=== PATIENT | female | born 1930 | race Two or more races ===

== ENCOUNTER 2018-06-02 11:37 | Emergency (ER) | payer OTHER ==
[~2018-06-02] VITALS: Ht 160 cm; Wt 81.6 kg
[~2018-06-02 11:37] MED LIST: ATROVENT 00.5 MG/2.5 IH; CALTRATE 600600 MG; CALTRATE 600600 MG PO; CENTRUM SILVER1 EAC2; CENTRUM SILVER1 EAC2 PO; COD LIVER OIL1 EACH; DETROL LA4 MG PO; DETROL2 MG; DICLOFENAC SODI50 MG PO; DICY20TA; ELIQUIS5 MG; ELOQUIS PO; HYZAAR 100-251 UDTAB; HYZAAR 100/25 T1 TAB PO; LINDANE60 ML TP; LOTREL 10-20 MG1 CAP; LOTREL 5-10 MG1 CAP PO; MEDROL4 MG PO; MEDROLPACK PO; NAMENDA10 MG; NAMENDA10 MG PO; NEURONTIN600 MG; NEURONTIN600 MG PO; OSTEO BI-FLEX1 EAC2; PROVENTIL3 ML/2.5 M IH; PROZAC20 MG; PROZAC20 MG PO; RAZADYNE ER16 MG; SIMVASTATIN20 MG; SULFAMETHOXAZOL1 TA6 PO; SYNTHROID100 MCG; SYNTHROID100 MCG PO; TRAM1TAB98 PO; TUSSAFED EX LI118 ML PO; TUSSI PRES-B L120 M1 PO; TYLENOL EXTRA500 MG PO; VITAMIN D3400 UNI1 PO; XOPENEX0.63 MG/3 IH; ZANTAC 7575 MG PO; ZITHROMAX200 MG PO; ZITHROMAX500 MG PO; ZOCOR20 MG PO; ZYRTEC10 MG PO; [UNRECOGNIZED DRUG - OTHER]
[2018-06-02] MEDS ORDERED: PRESERVISION A1 EAC1 PO (12:37)
[2018-06-02] MEDS ORDERED: LUMIGAN2.5 M1 (12:37)
[2018-06-02] MEDS ORDERED: SULAR8.5 MG PO (12:37)
== END 2018-06-02 15:35 | disposition home or self-care (01) ==
LOC: ER 11:37
DX: S80.11XA Contusion of right lower leg, initial encounter (principal); I87.2 Venous insufficiency (chronic) (peripheral); W01.198A Fall on same level from slipping, tripping and stumbling with subsequent striking against other object, initial encounter; Y93.89 Activity, other specified; Y92.89 Other specified places as the place of occurrence of the external cause; Y99.8 Other external cause status

== ENCOUNTER 2018-11-15 12:03 | Outpatient (CLI) | payer OTHER ==
[~2018-11-15 12:03] MED LIST changes: +LUMIGAN2.5 M1; +PRESERVISION A1 EAC1 PO; +SULAR8.5 MG PO
== END 2018-11-15 12:05 | disposition home or self-care (01) ==
LOC: MAMO-SONO 12:03
DX: Z12.31 Encounter for screening mammogram for malignant neoplasm of breast (principal); Z87.898 Personal history of other specified conditions; N64.4 Mastodynia

== ENCOUNTER → 2019-07-14 | Emergency (ER) | payer OTHER ==
[~2019-07-14] VITALS: Ht 162.6 cm; Wt 81.6 kg
[~2019-07-14] MED LIST changes: +LUMIGAN2.5 M1 OP
== END | disposition home or self-care (01) ==
LOC: ER 11:23
DX: S30.0XXA Contusion of lower back and pelvis, initial encounter (principal); S70.02XA Contusion of left hip, initial encounter; W18.39XA Other fall on same level, initial encounter; Y93.89 Activity, other specified; Y92.098 Other place in other non-institutional residence as the place of occurrence of the external cause; Y99.8 Other external cause status